=== PATIENT | female | born 1945 | race Caucasian/White ===

== ENCOUNTER 2019-10-26 06:30 | Inpatient (IN) ==
[2019-10-26] MEDS ORDERED: Ertapenem 1,000 MG in 0.9 % Sodium Chloride Mini Bag 100 ML IVPB ONE (06:53)
[2019-10-26] MEDS ORDERED: Ringers Solution, Lactated 1,000 ML IVC SCH (07:00)
[2019-10-26] MEDS ORDERED: *HR* Labetalol 20 MG/4 ML SYRINGE IVP PRN (07:00)
[2019-10-26] MEDS ORDERED: Acetaminophen IV 1,000 MG/100 ML INFUS..BTL IVPB ONE (07:00)
[2019-10-26] MEDS ORDERED: Famotidine 20 MG/2 ML VIAL IVP ONE (07:00)
[2019-10-26] MEDS ORDERED: *HR* HYDROmorphone (PF) 1 MG/ML SYRINGE IVP PRN ×4 (07:00→13:18)
[2019-10-26] MEDS ORDERED: *HR* HYDROmorphone 2 MG TABLET PO PRN ×2 (07:00→13:18)
[2019-10-26] MEDS ORDERED: Lidocaine -MPF 2% 2 ML VIAL ONE ×2 (07:01→07:02)
[2019-10-26] MEDS ORDERED: *HR* FentaNYL (PF) 100 MCG/2 ML VIAL ONE ×3 (07:02→13:45)
[2019-10-26] MEDS ORDERED: Lidocaine -MPF 4% 5 ML AMPUL ONE (07:02)
[2019-10-26] MEDS ORDERED: *HR* Succinylcholine 200 MG/10 ML VIAL IVP ONE (07:02)
[2019-10-26] MEDS ORDERED: Dexamethasone 4 MG/ML VIAL ONE (07:02)
[2019-10-26] MEDS ORDERED: *HR* Rocuronium Bromide 50 MG/5 ML VIAL ONE (07:02)
[2019-10-26] MEDS ORDERED: *HR* Propofol 200 MG/20 ML VIAL IVP ONE (07:02)
[2019-10-26] MEDS ORDERED: Ondansetron 4 MG/2 ML VIAL ONE (07:02)
[2019-10-26] MEDS ORDERED: *HR* Midazolam HCl 2 MG/2 ML VIAL ONE (07:45)
[2019-10-26] MEDS ORDERED: Bupivacaine/EPI 1:200k 0.25%PF 10 ML VIAL INFILT ONE (08:12)
[2019-10-26] MEDS ORDERED: Bupivacaine/EPI 1:200k 0.25%PF 30 ML VIAL ONE (08:12)
[2019-10-26] MEDS ORDERED: *HR* OxyCODONE/APAP 5/325 TABLET PO PRN (08:18)
[2019-10-26] MEDS ORDERED: Naloxone 0.4 MG/ML INJ IVP PRN ×2 (08:18→13:18)
[2019-10-26] MEDS ORDERED: 0.9 % Sodium Chloride 500 ML IVC PRN ×2 (08:18→13:18)
[2019-10-26] MEDS ORDERED: Morphine Sulfate 2 MG/ML SYRINGE IVP PRN ×2 (08:18→13:18)
[2019-10-26] MEDS ORDERED: Ketorolac 15 MG/ML VIAL IVP PRN (08:18)
[2019-10-26] MEDS ORDERED: Ibuprofen 400 MG TABLET PO PRN (08:18)
[2019-10-26] MEDS ORDERED: *HR* PHENYLEPHRINE 1,000 MCG/10 ML SYRINGE IVP ONE ×4 (08:28→10:32)
[2019-10-26] MEDS ORDERED: SODIUM CHLORIDE 0.9% EP SCH (08:30)
[2019-10-26] MEDS ORDERED: MORPHINE SULFATE EP SCH (08:30)
[2019-10-26] MEDS ORDERED: Morphine Sulfate/PF 10mg/10mL 30 MG in 0.9 % Sodium Chloride 60 ML EP SCH (08:45)
[2019-10-26] MEDS ORDERED: Neostigmine Methylsulfate 3 MG/3 ML SYRINGE ONE (11:21)
[2019-10-26] MEDS: *HR* Promethazine 25 MG/ML VIAL IVP PRN ×3 (11:50→12:18)
[2019-10-26] MEDS ORDERED: Bupivacaine-MPF 0.25% 10 ML VIAL ONE (13:47)
[2019-10-26] MEDS: Morphine Sulfate/PF 10mg/10mL 30 MG in 0.9 % Sodium Chloride 60 ML EP SCH (13:57)
[2019-10-26] MEDS: Ringers Solution, Lactated 1,000 ML IVC SCH (15:01)
[2019-10-27] MEDS: Ringers Solution, Lactated 1,000 ML IVC SCH ×2 (01:12→10:22)
[2019-10-27 03:21] LABS: Basophils % 0.1 %; Segmented Neutrophils % 81.7 %
[2019-10-27 03:23] LABS: Hematocrit 28.3 % (35.3-44.9); Immature Granulocytes % 0.3 % (0-4); Lymphocytes # 0.7 K/mcL (0.6-4.6); Lymphocytes % 6.8 %; Mean Corpuscular HGB Conc 28.3 g/dL (31.6-35.5); Mean Corpuscular Volume 81.3 fL (83.0-100.0); Mean Platelet Volume 10.7 fL (9.4-12.4); Monocytes # 1.1 K/mcL (0.0-1.3); Monocytes % 11.1 %; Platelet Count 218 K/mcL (140-400); Red Blood Count 3.48 M/mcL (3.82-4.97); Red Cell Distribution Width 29.9 % (11.5-14.5); White Blood Count 9.6 K/mcL (4.3-11.1)
[2019-10-27 03:26] LABS: Neutrophils # 7.8 K/mcL (1.6-8.9)
[2019-10-27 03:42] LABS: BUN/Creatinine Ratio 21 (6-26); Blood Urea Nitrogen 11 mg/dL (8-23); Calcium 8.5 mg/dL (8.6-10.3); Carbon Dioxide 25 mEq/L (23-29); Chloride 108 mEq/L (98-107); Glucose 115 mg/dL (70-105); Magnesium 1.7 mg/dL (1.6-2.6); Osmolality,Calculated 288 (280-300); Phosphorous 3.7 mg/dL (2.7-4.5); Potassium 3.9 mEq/L (3.5-5.1); Sodium 139 mEq/L (136-145); eGFR For African Americans > 60 (> 60); eGFR For Non-African Americans > 60 (> 60)
[2019-10-27 04:02] LABS: Anisocytosis 1+ (Not Present); Hypochromasia Present (Not Present); Microcytosis Present (Not Present); Platelet Estimate Normal (Normal)
[2019-10-27] MEDS: Pantoprazole 40 MG VIAL IVP SCH (08:56)
[2019-10-27] MEDS ORDERED: D5% in 0.45% NACL 1,000 ML IVC SCH (09:45)
[2019-10-27] MEDS: D5% in 0.45% NACL 1,000 ML IVC SCH ×2 (10:39→20:48)
[2019-10-27] MEDS: Morphine Sulfate/PF 10mg/10mL 30 MG in 0.9 % Sodium Chloride 60 ML EP SCH (11:19)
[2019-10-28 02:46] LABS: Basophils % 0.4 %; Hemoglobin 7.5 g/dL (11.5-15.4); Immature Granulocytes % 0.4 % (0-4); Lymphocytes % 7.8 %
[2019-10-28 02:47] LABS: Eosinophils % 0.5 %; Hematocrit 27.3 % (35.3-44.9); Lymphocytes # 0.6 K/mcL (0.6-4.6); Mean Corpuscular HGB Conc 27.5 g/dL (31.6-35.5); Mean Corpuscular Hemoglobin 22.1 pg (28.0-33.3); Mean Corpuscular Volume 80.5 fL (83.0-100.0); Mean Platelet Volume 10.5 fL (9.4-12.4); Monocytes # 0.8 K/mcL (0.0-1.3); Neutrophils # 6.3 K/mcL (1.6-8.9); Platelet Count 211 K/mcL (140-400); Red Blood Count 3.39 M/mcL (3.82-4.97); Red Cell Distribution Width 30.4 % (11.5-14.5); Segmented Neutrophils % 80.9 %; White Blood Count 7.8 K/mcL (4.3-11.1)
[2019-10-28 03:03] LABS: BUN/Creatinine Ratio 22 (6-26); Blood Urea Nitrogen 11 mg/dL (8-23); Calcium 8.3 mg/dL (8.6-10.3); Carbon Dioxide 29 mEq/L (23-29); Chloride 103 mEq/L (98-107); Glucose 138 mg/dL (70-105); Osmolality,Calculated 284 (280-300); Potassium 3.6 mEq/L (3.5-5.1); Sodium 136 mEq/L (136-145); eGFR For African Americans > 60 (> 60); eGFR For Non-African Americans > 60 (> 60)
[2019-10-28 03:16] LABS: Anisocytosis 1+ (Not Present); Hypochromasia Present (Not Present); Microcytosis Present (Not Present)
[2019-10-28 03:17] LABS: Platelet Estimate Normal (Normal)
[2019-10-28] MEDS: D5% in 0.45% NACL 1,000 ML IVC SCH ×2 (06:42→16:00)
[2019-10-28] MEDS: Pantoprazole 40 MG VIAL IVP SCH (09:30)
[2019-10-28] MEDS ORDERED: Furosemide 40 MG/4 ML VIAL IVP ONE (14:05)
[2019-10-28] MEDS: *HR* Heparin 5,000 UNIT/ML VIAL SQ SCH (17:14)
[2019-10-28] MEDS: Ondansetron 4 MG/2 ML VIAL IVP PRN (19:48)
[2019-10-28] MEDS: *HR* HYDROmorphone PF 0.5 MG/0.5 ML SYRINGE IVP PRN (22:05)
[2019-10-28] MEDS: Morphine Sulfate/PF 10mg/10mL 30 MG in 0.9 % Sodium Chloride 60 ML EP SCH (22:17)
[2019-10-29] MEDS: Ondansetron 4 MG/2 ML VIAL IVP PRN (04:34)
[2019-10-29 05:35] LABS: Eosinophils % 1.3 %
[2019-10-29 05:37] LABS: Basophils % 0.2 %; Eosinophils # 0.1 K/mcL (0.0-0.6); Hemoglobin 8.2 g/dL (11.5-15.4); Immature Granulocytes % 0.5 % (0-4); Lymphocytes # 0.5 K/mcL (0.6-4.6); Lymphocytes % 7.4 %; Mean Corpuscular HGB Conc 28.3 g/dL (31.6-35.5); Mean Corpuscular Hemoglobin 22.6 pg (28.0-33.3); Mean Corpuscular Volume 79.9 fL (83.0-100.0); Mean Platelet Volume 10.6 fL (9.4-12.4); Monocytes # 0.6 K/mcL (0.0-1.3); Monocytes % 9.3 %; Neutrophils # 5.1 K/mcL (1.6-8.9); Platelet Count 195 K/mcL (140-400); Red Blood Count 3.63 M/mcL (3.82-4.97); Red Cell Distribution Width 28.6 % (11.5-14.5); Segmented Neutrophils % 81.3 %; White Blood Count 6.3 K/mcL (4.3-11.1)
[2019-10-29] MEDS: *HR* Heparin 5,000 UNIT/ML VIAL SQ SCH ×2 (05:51→20:06)
[2019-10-29 05:57] LABS: BUN/Creatinine Ratio 18 (6-26); Blood Urea Nitrogen 7 mg/dL (8-23); Calcium 8.5 mg/dL (8.6-10.3); Carbon Dioxide 29 mEq/L (23-29); Chloride 100 mEq/L (98-107); Glucose 139 mg/dL (70-105); Magnesium 1.6 mg/dL (1.6-2.6); Osmolality,Calculated 278 (280-300); Phosphorous 1.9 mg/dL (2.7-4.5); Potassium 3.3 mEq/L (3.5-5.1); Sodium 134 mEq/L (136-145); eGFR For African Americans > 60 (> 60); eGFR For Non-African Americans > 60 (> 60)
[2019-10-29 06:48] LABS: Anisocytosis 1+ (Not Present); Hypochromasia Present (Not Present); Microcytosis Present (Not Present); Poikilocytosis 1+ (Not Present)
[2019-10-29 06:49] LABS: Platelet Estimate Normal (Normal)
[2019-10-29] MEDS: Pantoprazole 40 MG VIAL IVP SCH (07:35)
[2019-10-29] MEDS: D5% in 0.45% NACL 1,000 ML IVC SCH (09:39)
[2019-10-29] MEDS ORDERED: Potassium Chloride 40 MEQ, Lidocaine 1% 2 ML in 0.9 % Sodium Chloride 500 ML IVPB ONE (11:01)
[2019-10-29] MEDS ORDERED: *HR* OxyCODONE Immed Rel 5 MG TABLET PO PRN (11:03)
[2019-10-29] MEDS: *HR* Promethazine 25 MG/ML VIAL IVP PRN ×2 (12:07→23:09)
[2019-10-29] MEDS: Acetaminophen 325 MG TABLET PO PRN (14:06)
[2019-10-29] MEDS ORDERED: Potassium Phosphate 44 MEQ in 0.9 % Sodium Chloride 250 ML IVPB ONE (16:00)
[2019-10-29] MEDS: *HR* HYDROmorphone PF 0.5 MG/0.5 ML SYRINGE IVP PRN (23:09)
[2019-10-30] MEDS: Pantoprazole 40 MG VIAL IVP SCH (07:21)
[2019-10-30] MEDS: *HR* Heparin 5,000 UNIT/ML VIAL SQ SCH ×2 (07:21→17:47)
[2019-10-30 11:20] LABS: Basophils % 0.3 %; Eosinophils % 0.3 %; Hematocrit 30.2 % (35.3-44.9); Hemoglobin 8.6 g/dL (11.5-15.4); Immature Granulocytes % 0.2 % (0-4); Lymphocytes # 0.4 K/mcL (0.6-4.6); Lymphocytes % 5.8 %; Mean Corpuscular HGB Conc 28.5 g/dL (31.6-35.5); Mean Corpuscular Hemoglobin 22.3 pg (28.0-33.3); Mean Corpuscular Volume 78.4 fL (83.0-100.0); Monocytes # 1.1 K/mcL (0.0-1.3); Monocytes % 17.4 %; Neutrophils # 4.9 K/mcL (1.6-8.9); Platelet Count 253 K/mcL (140-400); Red Blood Count 3.85 M/mcL (3.82-4.97); Red Cell Distribution Width 29.4 % (11.5-14.5); White Blood Count 6.4 K/mcL (4.3-11.1)
[2019-10-30 11:39] LABS: BUN/Creatinine Ratio 18 (6-26); Blood Urea Nitrogen 7 mg/dL (8-23); Calcium 8.5 mg/dL (8.6-10.3); Carbon Dioxide 29 mEq/L (23-29); Chloride 101 mEq/L (98-107); Glucose 135 mg/dL (70-105); Osmolality,Calculated 280 (280-300); Potassium 3.4 mEq/L (3.5-5.1); Sodium 135 mEq/L (136-145); eGFR For African Americans > 60 (> 60); eGFR For Non-African Americans > 60 (> 60)
[2019-10-30] MEDS ORDERED: Potassium Chloride 40 MEQ, Lidocaine 1% 2 ML in 0.9 % Sodium Chloride 500 ML IVPB ONE (12:04)
[2019-10-30] MEDS: D5% in 0.45% NACL 1,000 ML IVC SCH (12:33)
[2019-10-30 12:37] LABS: Anisocytosis 1+ (Not Present); Hypochromasia Present (Not Present); Platelet Estimate Normal (Normal)
[2019-10-30] MEDS: Ondansetron 4 MG/2 ML VIAL IVP PRN (16:47)
[2019-10-30] MEDS: *HR* Promethazine 25 MG/ML VIAL IVP PRN (21:35)
[2019-10-30] MEDS: Acetaminophen 325 MG TABLET PO PRN (22:20)
[2019-10-31] MEDS: Acetaminophen 325 MG TABLET PO PRN (05:37)
[2019-10-31] MEDS: *HR* Heparin 5,000 UNIT/ML VIAL SQ SCH ×2 (05:37→17:03)
[2019-10-31 07:09] LABS: Hematocrit 28.6 % (35.3-44.9); Hemoglobin 8.4 g/dL (11.5-15.4); Mean Corpuscular HGB Conc 29.4 g/dL (31.6-35.5); Mean Corpuscular Hemoglobin 22.9 pg (28.0-33.3); Mean Corpuscular Volume 77.9 fL (83.0-100.0); Mean Platelet Volume 10.4 fL (9.4-12.4); Platelet Count 247 K/mcL (140-400); Red Blood Count 3.67 M/mcL (3.82-4.97); Red Cell Distribution Width 29.3 % (11.5-14.5); White Blood Count 5.2 K/mcL (4.3-11.1)
[2019-10-31 08:28] LABS: BUN/Creatinine Ratio 16 (6-26); Blood Urea Nitrogen 6 mg/dL (8-23); Calcium 8.5 mg/dL (8.6-10.3); Carbon Dioxide 29 mEq/L (23-29); Chloride 102 mEq/L (98-107); Glucose 115 mg/dL (70-105); Magnesium 1.6 mg/dL (1.6-2.6); Osmolality,Calculated 281 (280-300); Phosphorous 2.2 mg/dL (2.7-4.5); Potassium 3.4 mEq/L (3.5-5.1); Sodium 136 mEq/L (136-145); eGFR For African Americans > 60 (> 60); eGFR For Non-African Americans > 60 (> 60)
[2019-10-31] MEDS: *HR* Promethazine 25 MG/ML VIAL IVP PRN (12:20)
[2019-10-31] MEDS ORDERED: Potassium Chloride 40 MEQ, Lidocaine 1% 2 ML in 0.9 % Sodium Chloride 500 ML IVPB ONE (12:57)
[2019-10-31] MEDS ORDERED: Potassium Phosphate 44 MEQ in 0.9 % Sodium Chloride 250 ML IVPB ONE ×2 (12:57→17:00)
[2019-10-31] MEDS: Metoclopramide 10 MG/2 ML VIAL IVP SCH ×2 (17:03→23:14)
[2019-11-01] MEDS: *HR* Heparin 5,000 UNIT/ML VIAL SQ SCH ×2 (06:27→17:38)
[2019-11-01] MEDS: D5% in 0.45% NACL 1,000 ML IVC SCH (06:27)
[2019-11-01] MEDS: Metoclopramide 10 MG/2 ML VIAL IVP SCH ×2 (06:28→11:07)
[2019-11-01 06:42] LABS: Hematocrit 26.9 % (35.3-44.9); Mean Corpuscular HGB Conc 29.7 g/dL (31.6-35.5); Mean Corpuscular Hemoglobin 23.2 pg (28.0-33.3); Mean Platelet Volume 9.5 fL (9.4-12.4); Platelet Count 222 K/mcL (140-400); Red Blood Count 3.45 M/mcL (3.82-4.97); Red Cell Distribution Width 29.4 % (11.5-14.5); White Blood Count 5.9 K/mcL (4.3-11.1)
[2019-11-01 07:01] LABS: Phosphorous 3.7 mg/dL (2.7-4.5); Potassium 3.7 mEq/L (3.5-5.1)
[2019-11-01 07:15] LABS: Anisocytosis 1+ (Not Present); Hypochromasia Present (Not Present); Poikilocytosis 1+ (Not Present)
[2019-11-01 07:17] LABS: Lymphocytes # 0.4 K/mcL (0.6-4.6); Monocytes # 0.6 K/mcL (0.0-1.3); Platelet Estimate Normal (Normal)
[2019-11-01] MEDS: Acetaminophen 325 MG TABLET PO PRN (20:07)
[2019-11-02] MEDS: *HR* Heparin 5,000 UNIT/ML VIAL SQ SCH (06:21)
[2019-11-02 10:52] VITALS: BP 130/75
== END 2019-11-02 12:35 | disposition home or self-care (01) | DRG 330 ==
LOC: SAMDAY 06:30 → 3ANU 12:47
PROVIDERS: ADMIT Surgery; ATTEND Surgery

== ENCOUNTER 2019-11-07 20:27 | Observation (INO) ==
[2019-11-07] MEDS ORDERED: Isovue-370 500 ML BOTTLE IVP ONE (21:19)
[2019-11-07] MEDS ORDERED: methylPREDNISolone 125 MG/2 ML VIAL IVP ONE (21:22)
[2019-11-07] MEDS ORDERED: 0.9 % Sodium Chloride 1,000 ML IVC ONE ×2 (21:23→22:31)
[2019-11-07] MEDS ORDERED: Ondansetron 4 MG/2 ML VIAL IVP ONE (21:24)
[2019-11-07 21:28] LABS: Hematocrit 28.5 % (35.3-44.9); Hemoglobin 8.4 g/dL (11.5-15.4); Mean Corpuscular HGB Conc 29.5 g/dL (31.6-35.5); Mean Corpuscular Hemoglobin 22.6 pg (28.0-33.3); Mean Corpuscular Volume 76.8 fL (83.0-100.0); Mean Platelet Volume 9.7 fL (9.4-12.4); Platelet Count 499 K/mcL (140-400); Red Blood Count 3.71 M/mcL (3.82-4.97); Red Cell Distribution Width 29.2 % (11.5-14.5); White Blood Count 11.3 K/mcL (4.3-11.1)
[2019-11-07] MEDS ORDERED: Acetaminophen IV 1,000 MG/100 ML INFUS..BTL IVPB ONE (21:29)
[2019-11-07 21:45] LABS: Alanine Aminotransferase 33 Units/L (7-52); Albumin 3.2 g/dL (3.5-5.7); Albumin/Globulin Ratio 1.2 (1.1-2.2); Alkaline Phosphatase 98 Units/L (34-104); Aspartate Amino Transferase 45 Units/L (13-39); BUN/Creatinine Ratio 15 (6-26); Bilirubin,Direct 0.2 mg/dL (0.0-0.2); Bilirubin,Indirect 0.5 mg/dL (0.0-1.0); Bilirubin,Total 0.7 mg/dL (0.3-1.0); Blood Urea Nitrogen 6 mg/dL (8-23); Calcium 8.6 mg/dL (8.6-10.3); Carbon Dioxide 25 mEq/L (23-29); Chloride 103 mEq/L (98-107); Globulin 2.7 g/dL (2.4-3.5); Glucose 114 mg/dL (70-105); Osmolality,Calculated 282 (280-300); Potassium 3.3 mEq/L (3.5-5.1); Sodium 137 mEq/L (136-145); Total Protein 5.9 g/dL (6.4-8.9); eGFR For African Americans > 60 (> 60); eGFR For Non-African Americans > 60 (> 60)
[2019-11-07] MEDS ORDERED: Potassium Chloride 20 MEQ, Lidocaine 1% 2 ML in 0.9 % Sodium Chloride 250 ML IVPB ONE (21:55)
[2019-11-07 21:59] LABS: Anisocytosis 3+ (Not Present); Eosinophils # 0.2 K/mcL (0.0-0.6); Hypochromasia Present (Not Present); Lymphocytes # 1.1 K/mcL (0.6-4.6); Microcytosis Present (Not Present); Neutrophils # 9.9 K/mcL (1.6-8.9); Platelet Estimate Increased (Normal)
[2019-11-07 22:00] LABS: Polychromasia 1+ (Not Present)
[2019-11-07] MEDS ORDERED: Piperacillin/Tazobactam 3.375 GM in 0.9 % Sodium Chloride Mini Bag 100 ML IVPB ONE (22:21)
[2019-11-07] MEDS ORDERED: Morphine Sulfate 2 MG/ML SYRINGE IVP ONE (22:27)
[2019-11-07] MEDS ORDERED: Piperacillin/Tazobactam 3.375 GM in Water for inj. (sterile) 20 ML IVP ONE (22:43)
[2019-11-08 00:36] LABS: Bilirubin,Urine Negative (Negative); Blood,Urine Negative (Negative); Clarity,Urine Clear (Clear); Color,Urine Light-Yellow (Yellow); Glucose,Urine (UA) Normal (Normal); Ketones,Urine Trace mg/dL (Negative); Leukocyte Esterase,Urine Negative (Negative); Nitrite,Urine Negative (Negative); Protein,Urine Trace mg/dL (Neg-Trace); Specific Gravity,Urine > 1.030 (1.010-1.025); Urobilinogen,Urine Normal (Normal)
[2019-11-08] MEDS ORDERED: Acetaminophen 325 MG TABLET PO PRN (02:24)
[2019-11-08] MEDS: Ringers Solution, Lactated 1,000 ML IVC SCH ×3 (03:55→22:26)
[2019-11-08] MEDS ORDERED: Metoclopramide 10 MG/10 ML UD.LIQ PO SCH ×2 (06:00→08:00)
[2019-11-08] MEDS ORDERED: Ringers Solution, Lactated 1,000 ML IVC SCH (08:00)
[2019-11-08] MEDS: *HR* Heparin 5,000 UNIT/ML VIAL SQ SCH ×2 (08:56→16:26)
[2019-11-08] MEDS: Piperacillin/Tazobactam 3.375 GM in 0.9 % Sodium Chloride Mini Bag 100 ML IVPB SCH ×2 (08:56→16:21)
[2019-11-08] MEDS ORDERED: Metoclopramide 10 MG/10 ML UD.LIQ PO PRN (13:49)
[2019-11-08] MEDS ORDERED: Potassium Chloride 40 MEQ, Lidocaine 1% 2 ML in 0.9 % Sodium Chloride 500 ML IVPB ONE (13:52)
[2019-11-09] MEDS: Piperacillin/Tazobactam 3.375 GM in 0.9 % Sodium Chloride Mini Bag 100 ML IVPB SCH ×2 (00:16→07:47)
[2019-11-09 05:54] LABS: Basophils % 0.4 %; Eosinophils % 0.2 %; Hematocrit 26.1 % (35.3-44.9); Hemoglobin 7.6 g/dL (11.5-15.4); Lymphocytes # 1.3 K/mcL (0.6-4.6); Lymphocytes % 24.5 %; Mean Corpuscular HGB Conc 29.1 g/dL (31.6-35.5); Mean Corpuscular Hemoglobin 23.5 pg (28.0-33.3); Mean Corpuscular Volume 80.6 fL (83.0-100.0); Mean Platelet Volume 9.7 fL (9.4-12.4); Monocytes # 0.9 K/mcL (0.0-1.3); Monocytes % 17.3 %; Neutrophils # 2.9 K/mcL (1.6-8.9); Platelet Count 445 K/mcL (140-400); Red Blood Count 3.24 M/mcL (3.82-4.97); Red Cell Distribution Width 29.2 % (11.5-14.5); Segmented Neutrophils % 56.6 %
[2019-11-09 06:01] LABS: White Blood Count 5.2 K/mcL (4.3-11.1)
[2019-11-09] MEDS: *HR* Heparin 5,000 UNIT/ML VIAL SQ SCH (06:05)
[2019-11-09 06:14] LABS: BUN/Creatinine Ratio 31 (6-26); Blood Urea Nitrogen 14 mg/dL (8-23); Calcium 8.5 mg/dL (8.6-10.3); Carbon Dioxide 26 mEq/L (23-29); Chloride 108 mEq/L (98-107); Glucose 117 mg/dL (70-105); Osmolality,Calculated 290 (280-300); Potassium 3.6 mEq/L (3.5-5.1); Sodium 139 mEq/L (136-145); eGFR For African Americans > 60 (> 60); eGFR For Non-African Americans > 60 (> 60)
[2019-11-09 06:23] LABS: Anisocytosis 2+ (Not Present); Hypochromasia Present (Not Present); Poikilocytosis 1+ (Not Present)
[2019-11-09 10:32] VITALS: BP 123/74
[2019-11-09] MEDS: Ringers Solution, Lactated 1,000 ML IVC SCH (10:45)
== END 2019-11-09 11:28 | disposition home or self-care (01) ==
LOC: 3ANU 20:27 → EMEROOARM 20:27 → 3ANU 11-08 00:23
PROVIDERS: ADMIT Surgery; ATTEND Surgery